=== PATIENT | male | born 1970 | race Caucasian/White ===

== ENCOUNTER 2016-11-14 07:42 | Inpatient (IN) | payer BC ==
[~2016-11-14] VITALS: Ht 175.3 cm; Wt 68.9 kg
[2016-11-14] VITALS (21 sets, daily range): BP systolic 91–200
[2016-11-14] MEDS ORDERED: ASPIRIN 325 MG TABLET PO ONE (08:15)
[2016-11-14 08:20] LABS: BASOPHILS % (AUTO) 0.5 % (0.0-2.0); EOSINOPHILS # (AUTO) 0.7 K/uL (0.0-0.4); EOSINOPHILS % (AUTO) 7.7 % (0.0-4.0); HEMATOCRIT 38.2 % (36-54); HEMOGLOBIN 12.7 g/dL (14.0-18.0); LYMPHOCYTES # (AUTO) 1.6 K/uL (1.0-5.5); MEAN CORPUSCULAR HEMOGLOBIN 31 pg (27-31); MEAN CORPUSCULAR HGB CONC 33 % (32-36); MEAN CORPUSCULAR VOLUME 93 fL (79.0-98.0); MONOCYTES # (AUTO) 0.7 K/uL (0.0-1.0); MONOCYTES % (AUTO) 7.7 % (1.7-9.3); NEUTROPHILS # (AUTO) 5.7 K/uL (1.8-7.7); NEUTROPHILS % (AUTO) 65.1 % (40.0-70.0); PLATELET COUNT (AUTO) 236 K/uL (130-430); RED BLOOD CELL COUNT(AUTO) 4.11 MIL/uL (4.2-6.2); RED CELL DISTRIBUTION WIDTH 13.4 % (9.0-15.0); WHITE BLOOD COUNT (AUTO) 8.7 K/uL (4.8-10.8)
[2016-11-14 08:25] LABS: ANION GAP 8 (5-15); CALCIUM 8.7 mg/dL (8.4-11.0); CHLORIDE 103 mmol/L (98-107); CREATININE 0.99 mg/dL (0.55-1.30); GLUCOSE 106 mg/dL (70-99); POTASSIUM 3.5 mmol/L (3.5-5.1); SODIUM SERUM 139 mmol/L (136-145); UREA NITROGEN, BLOOD 14 mg/dL (8-21)
[2016-11-14 08:26] LABS: GFR AFRICAN AMERICAN 105 mL/min (>90)
[2016-11-14 08:29] LABS: ALANINE AMINOTRANSFERASE 23 U/L (12-78); ALBUMIN 3.4 g/dL (3.4-4.8); ASPARTATE AMINOTRANSFERASE 26 U/L (10-37); INR 0.9 (0.80-1.20); PROTHROMBIN TIME 10.3 SECS (9.5-12.5); TOTAL BILIRUBIN 0.6 mg/dL (0.0-1.0)
[2016-11-14 08:30] LABS: ALCOHOL, BLOOD < 3 mg/dL (<10)
[2016-11-14] MEDS ORDERED: LORazepam 2 MG/ML VIAL (FOR ER USE) ONE ×3 (08:45→11:36)
[2016-11-14] MEDS ORDERED: LORazepam 2 MG/ML VIAL IVP ONE ×4 (08:45→13:30)
[2016-11-14 08:59] LABS: ABG TOTAL HEMOGLOBIN 13.8 G/dL (12.0-18.0); BLOOD GAS BASE EXCESS 1.9 mmol/L (-3.0-3.0); BLOOD GAS COHb% 1.7 % (0.5-1.5); BLOOD GAS HHB 7.1 % (0.0-6.0); BLOOD GAS PH 7.406 (7.350-7.450); BLOOD O2Hb% 90.8 % (94.0-97.0)
[2016-11-14 09:18] LABS: BARBITURATE, URINE NEGATIVE (NEG <=200)
[2016-11-14 09:19] LABS: BENZODIAZEPINE, URINE NEGATIVE (NEG <=150); CANNABINOID, URINE NEGATIVE (NEG <=50); COCAINE, URINE POSITIVE (NEG <=150); METHAMPHETAMINES SCREEN,URINE NEGATIVE (NEG <=500); OPIATE, URINE POSITIVE (NEG <=100); PHENCYCLIDINE SCREEN,URINE NEGATIVE (NEG <=25); UR TRICYCLIC ANTIDEPRESSANTS NEGATIVE (NEG <=300); URINE AMPHETAMINE NEGATIVE (NEG <=500); URINE METHADONE NEGATIVE (NEG <=200); URINE OXYCODONE SCREEN NEGATIVE (NEG <=100); URINE PROPOXYPHENE SCREEN NEGATIVE (NEG <=300)
[2016-11-14] MEDS ORDERED: NACL 0.9% 1,000 ML IV ONE (09:45)
[2016-11-14] MEDS ORDERED: IOHEXOL 350 mgI/mL, 150 ML INFUS..BTL IV ONE (09:46)
[2016-11-14] MEDS ORDERED: NALOXONE HCL 0.4 MG/ML AMP (NARCAN) IVP ONE (10:45)
[2016-11-14] MEDS ORDERED: NALOXONE HCL 0.4 MG/ML AMP (NARCAN) ONE (10:54)
[2016-11-14] MEDS ORDERED: PROPOFOL DRIP 100 ML IV ONE (11:15)
[2016-11-14] MEDS ORDERED: ROCURONIUM BROMIDE 10 MG/ML (ZEMURON) IV ONE (11:45)
[2016-11-14] MEDS ORDERED: ETOMIDATE 20 MG/ 10 ML VIAL (AMIDATE) IVP ONE (11:45)
[2016-11-14] MEDS ORDERED: LORazepam 2 MG/ML VIAL ONE ×2 (13:24→13:49)
[2016-11-14] MEDS ORDERED: MORPHINE 4 MG/ML INJ. SYRINGE ONE (13:48)
[2016-11-14 13:53] LABS: ABG TOTAL HEMOGLOBIN 13.3 G/dL (12.0-18.0); BLOOD GAS BASE EXCESS 2.8 mmol/L (-3.0-3.0); BLOOD GAS PH 7.354 (7.350-7.450)
[2016-11-14 13:54] LABS: BLOOD GAS HHB 1.6 % (0.0-6.0)
[2016-11-14] MEDS ORDERED: MORPHINE 2 MG/ML INJ. SYRINGE IVP PRN (14:00)
[2016-11-14] MEDS ORDERED: LORazepam 2 MG/ML VIAL IVP PRN (14:00)
[2016-11-14] MEDS ORDERED: IPRATROPIUM BROM 0.5 MG/2.5 ML VIAL.NEB (ATROVENT) INH PRN (14:15)
[2016-11-14] MEDS ORDERED: ALBUTEROL SULFATE 0.083% 2.5 MG/3 ML VIAL.NEB INH PRN (14:15)
[2016-11-14] MEDS: D5LR 1,000 ML IV SCH ×2 (14:45→21:41)
[2016-11-14] MEDS: LORazepam 2 MG/ML VIAL IVP PRN ×2 (14:45→15:47)
[2016-11-14] MEDS: cefTRIAXone 1 GM in D5W 50 ML IV SCH (14:49)
[2016-11-14] MEDS: PROPOFOL DRIP 100 ML IV SCH ×2 (15:46→21:51)
[2016-11-14] MEDS: MORPHINE 4 MG/ML INJ. SYRINGE IVP PRN (15:48)
[2016-11-14] MEDS: IPRATROPIUM/ALBUTEROL SULFATE 3 ML AMPUL.NEB INH SCH ×2 (19:00→23:00)
[2016-11-14] MEDS: ALBUTEROL SULFATE 0.083% 2.5 MG/3 ML VIAL.NEB INH SCH (19:19)
[2016-11-14] MEDS: IPRATROPIUM BROM 0.5 MG/2.5 ML VIAL.NEB (ATROVENT) INH SCH (19:19)
[2016-11-14] MEDS: methylPREDNISolone SOD SUCC/PF 62.5 MG/ML VIAL IVP SCH (21:40)
[2016-11-15] VITALS (33 sets, daily range): BP systolic 104–140
[2016-11-15] MEDS: MORPHINE 2 MG/ML INJ. SYRINGE IVP PRN (00:13)
[2016-11-15] MEDS: PROPOFOL DRIP 100 ML IV SCH ×4 (01:10→17:03)
[2016-11-15] MEDS: ALBUTEROL SULFATE 0.083% 2.5 MG/3 ML VIAL.NEB INH SCH ×4 (01:35→19:34)
[2016-11-15] MEDS: IPRATROPIUM BROM 0.5 MG/2.5 ML VIAL.NEB (ATROVENT) INH SCH ×4 (01:35→19:34)
[2016-11-15] MEDS: IPRATROPIUM/ALBUTEROL SULFATE 3 ML AMPUL.NEB INH SCH ×4 (03:00→15:00)
[2016-11-15] MEDS: methylPREDNISolone SOD SUCC/PF 62.5 MG/ML VIAL IVP SCH ×3 (05:28→22:11)
[2016-11-15] MEDS: D5LR 1,000 ML IV SCH ×3 (05:29→22:13)
[2016-11-15 06:51] LABS: EOSINOPHILS % (AUTO) 0.1 % (0.0-4.0); HEMATOCRIT 35.9 % (36-54); LYMPHOCYTES # (AUTO) 0.5 K/uL (1.0-5.5); LYMPHOCYTES % (AUTO) 6.9 % (20.5-51.5); MEAN CORPUSCULAR HEMOGLOBIN 32 pg (27-31); MEAN CORPUSCULAR HGB CONC 34 % (32-36); MEAN CORPUSCULAR VOLUME 94 fL (79.0-98.0); MONOCYTES # (AUTO) 0.1 K/uL (0.0-1.0); MONOCYTES % (AUTO) 1.4 % (1.7-9.3); NEUTROPHILS # (AUTO) 6.5 K/uL (1.8-7.7); NEUTROPHILS % (AUTO) 91.6 % (40.0-70.0); PLATELET COUNT (AUTO) 200 K/uL (130-430); RED BLOOD CELL COUNT(AUTO) 3.82 MIL/uL (4.2-6.2); RED CELL DISTRIBUTION WIDTH 12.9 % (9.0-15.0); WHITE BLOOD COUNT (AUTO) 7.1 K/uL (4.8-10.8)
[2016-11-15 07:22] LABS: ALBUMIN 2.6 g/dL (3.4-4.8); CALCIUM 8.4 mg/dL (8.4-11.0); CREATININE 0.81 mg/dL (0.55-1.30); TOTAL BILIRUBIN 0.2 mg/dL (0.0-1.0); TOTAL PROTEIN, SERUM 6.1 g/dL (6.4-8.3)
[2016-11-15 08:00] LABS: BLOOD GAS PH 7.446 (7.350-7.450)
[2016-11-15 08:01] LABS: ABG TOTAL HEMOGLOBIN 13.2 G/dL (12.0-18.0); BLOOD GAS BASE EXCESS 4.5 mmol/L (-3.0-3.0); BLOOD GAS COHb% 0.3 % (0.5-1.5); BLOOD GAS HHB 5.8 % (0.0-6.0); BLOOD O2Hb% 93.8 % (94.0-97.0)
[2016-11-15] MEDS: LORazepam 2 MG/ML VIAL IVP PRN ×5 (09:52→23:39)
[2016-11-15] MEDS ORDERED: ENOXAPARIN SODIUM 40 MG/0.4 ML SYRINGE SUBCUT ONE (11:00)
[2016-11-15] MEDS: MORPHINE 4 MG/ML INJ. SYRINGE IVP PRN ×2 (11:02→15:32)
[2016-11-15] MEDS: DIPHENHYDRAMINE INJ 50 MG/ML VIAL IVP SCH ×2 (13:00→17:23)
[2016-11-15] MEDS: FAMOTIDINE PF 20 MG/2 ML VIAL IVP SCH ×2 (13:15→21:12)
[2016-11-15] MEDS ORDERED: FAMOTIDINE PF 20 MG/2 ML VIAL IVP ONE (13:15)
[2016-11-15] MEDS ORDERED: DIPHENHYDRAMINE INJ 50 MG/ML VIAL IVP ONE (13:15)
[2016-11-15] MEDS: cefTRIAXone 1 GM in D5W 50 ML IV SCH (14:22)
[2016-11-15] MEDS ORDERED: MUPIROCIN NASAL 2% OINT. 1 GM NS SCH (21:00)
[2016-11-16] VITALS (33 sets, daily range): BP systolic 104–171
[2016-11-16] MEDS: DIPHENHYDRAMINE INJ 50 MG/ML VIAL IVP SCH ×2 (00:03→05:53)
[2016-11-16] MEDS: IPRATROPIUM BROM 0.5 MG/2.5 ML VIAL.NEB (ATROVENT) INH SCH ×4 (01:30→20:04)
[2016-11-16] MEDS: ALBUTEROL SULFATE 0.083% 2.5 MG/3 ML VIAL.NEB INH SCH ×4 (01:31→20:04)
[2016-11-16] MEDS: LORazepam 2 MG/ML VIAL IVP PRN ×6 (02:20→23:56)
[2016-11-16] MEDS: methylPREDNISolone SOD SUCC/PF 62.5 MG/ML VIAL IVP SCH ×2 (05:53→21:10)
[2016-11-16] MEDS: D5LR 1,000 ML IV SCH (06:00)
[2016-11-16] MEDS: PROPOFOL DRIP 100 ML IV SCH ×3 (06:15→17:31)
[2016-11-16 06:54] LABS: CALCIUM 8.5 mg/dL (8.4-11.0); CREATININE 0.91 mg/dL (0.55-1.30); POTASSIUM 3.7 mmol/L (3.5-5.1)
[2016-11-16 06:55] LABS: BASOPHILS % (AUTO) 0.1 % (0.0-2.0); HEMATOCRIT 36.8 % (36-54); HEMOGLOBIN 11.9 g/dL (14.0-18.0); LYMPHOCYTES # (AUTO) 0.8 K/uL (1.0-5.5); LYMPHOCYTES % (AUTO) 8.3 % (20.5-51.5); MEAN CORPUSCULAR HEMOGLOBIN 31 pg (27-31); MEAN CORPUSCULAR HGB CONC 33 % (32-36); MEAN CORPUSCULAR VOLUME 94 fL (79.0-98.0); MONOCYTES # (AUTO) 0.7 K/uL (0.0-1.0); MONOCYTES % (AUTO) 7.3 % (1.7-9.3); NEUTROPHILS # (AUTO) 8.7 K/uL (1.8-7.7); NEUTROPHILS % (AUTO) 84.3 % (40.0-70.0); PLATELET COUNT (AUTO) 224 K/uL (130-430); RED BLOOD CELL COUNT(AUTO) 3.93 MIL/uL (4.2-6.2); WHITE BLOOD COUNT (AUTO) 10.2 K/uL (4.8-10.8)
[2016-11-16] MEDS: IPRATROPIUM/ALBUTEROL SULFATE 3 ML AMPUL.NEB INH SCH ×2 (07:00→11:00)
[2016-11-16 07:59] LABS: BLOOD GAS PH 7.471 (7.350-7.450)
[2016-11-16 08:00] LABS: BLOOD GAS BASE EXCESS 3.4 mmol/L (-3.0-3.0); BLOOD GAS COHb% 0.3 % (0.5-1.5); BLOOD GAS HHB 4.3 % (0.0-6.0); BLOOD O2Hb% 95.1 % (94.0-97.0)
[2016-11-16] MEDS: ENOXAPARIN SODIUM 40 MG/0.4 ML SYRINGE SUBCUT SCH (08:24)
[2016-11-16] MEDS: FAMOTIDINE PF 20 MG/2 ML VIAL IVP SCH ×2 (08:25→21:10)
[2016-11-16] MEDS ORDERED: LACTULOSE 20 GM/30 ML UDC NG ONE (09:15)
[2016-11-16] MEDS: ONDANSETRON HCL 4 MG/2 ML VIAL IVP PRN ×2 (09:41→19:37)
[2016-11-16] MEDS: MORPHINE 2 MG/ML INJ. SYRINGE IVP PRN (11:25)
[2016-11-16] MEDS ORDERED: cloNIDine HCL 0.2 MG TABLET NG PRN (12:45)
[2016-11-16] MEDS: MORPHINE 4 MG/ML INJ. SYRINGE IVP PRN ×2 (13:36→15:21)
[2016-11-16] MEDS: cefTRIAXone 1 GM in D5W 50 ML IV SCH (14:06)
[2016-11-16] MEDS ORDERED: MUPIROCIN 2% TOPICAL OINTMENT 22 GM TP ONE (14:15)
[2016-11-16] MEDS ORDERED: DIPHENHYDRAMINE INJ 50 MG/ML VIAL IVP PRN (15:00)
[2016-11-16] MEDS: cloNIDine HCL 0.1 MG TABLET NG SCH ×2 (17:29→23:56)
[2016-11-16] MEDS: MUPIROCIN 2% TOPICAL OINTMENT 22 GM TP SCH (21:16)
[2016-11-17] VITALS (26 sets, daily range): BP systolic 120–150
[2016-11-17] MEDS: ALBUTEROL SULFATE 0.083% 2.5 MG/3 ML VIAL.NEB INH SCH ×4 (00:59→19:37)
[2016-11-17] MEDS: IPRATROPIUM BROM 0.5 MG/2.5 ML VIAL.NEB (ATROVENT) INH SCH ×4 (00:59→19:37)
[2016-11-17] MEDS: LORazepam 2 MG/ML VIAL IVP PRN ×2 (02:04→03:16)
[2016-11-17] MEDS: D5LR 1,000 ML IV SCH ×3 (05:00→19:16)
[2016-11-17] MEDS: PROPOFOL DRIP 100 ML IV SCH (05:02)
[2016-11-17] MEDS: cloNIDine HCL 0.1 MG TABLET NG SCH ×4 (06:07→23:10)
[2016-11-17 06:42] LABS: CALCIUM 8.4 mg/dL (8.4-11.0); CREATININE 0.84 mg/dL (0.55-1.30); POTASSIUM 3.7 mmol/L (3.5-5.1)
[2016-11-17 07:02] LABS: BASOPHILS % (AUTO) 0.2 % (0.0-2.0); HEMATOCRIT 35.9 % (36-54); HEMOGLOBIN 11.6 g/dL (14.0-18.0); LYMPHOCYTES # (AUTO) 0.9 K/uL (1.0-5.5); LYMPHOCYTES % (AUTO) 10.5 % (20.5-51.5); MEAN CORPUSCULAR HEMOGLOBIN 31 pg (27-31); MEAN CORPUSCULAR HGB CONC 32 % (32-36); MEAN CORPUSCULAR VOLUME 95 fL (79.0-98.0); MONOCYTES # (AUTO) 0.5 K/uL (0.0-1.0); MONOCYTES % (AUTO) 6.3 % (1.7-9.3); NEUTROPHILS # (AUTO) 7.3 K/uL (1.8-7.7); PLATELET COUNT (AUTO) 204 K/uL (130-430); RED BLOOD CELL COUNT(AUTO) 3.77 MIL/uL (4.2-6.2); RED CELL DISTRIBUTION WIDTH 13.5 % (9.0-15.0); WHITE BLOOD COUNT (AUTO) 8.7 K/uL (4.8-10.8)
[2016-11-17 07:52] LABS: BLOOD GAS PH 7.461 (7.350-7.450)
[2016-11-17 07:54] LABS: ABG TOTAL HEMOGLOBIN 12.9 G/dL (12.0-18.0); BLOOD GAS BASE EXCESS 5.4 mmol/L (-3.0-3.0); BLOOD GAS COHb% 0.3 % (0.5-1.5); BLOOD GAS HHB 3.8 % (0.0-6.0); BLOOD O2Hb% 95.5 % (94.0-97.0)
[2016-11-17] MEDS: ONDANSETRON HCL 4 MG/2 ML VIAL IVP PRN (07:58)
[2016-11-17] MEDS: MORPHINE 2 MG/ML INJ. SYRINGE IVP PRN ×2 (08:04→15:08)
[2016-11-17] MEDS: ENOXAPARIN SODIUM 40 MG/0.4 ML SYRINGE SUBCUT SCH (08:48)
[2016-11-17] MEDS: FAMOTIDINE PF 20 MG/2 ML VIAL IVP SCH (08:49)
[2016-11-17] MEDS: methylPREDNISolone SOD SUCC/PF 62.5 MG/ML VIAL IVP SCH ×2 (08:49→21:01)
[2016-11-17] MEDS: MUPIROCIN 2% TOPICAL OINTMENT 22 GM TP SCH ×2 (08:54→21:14)
[2016-11-17 11:32] LABS: ABG TOTAL HEMOGLOBIN 12.9 G/dL (12.0-18.0); BLOOD GAS BASE EXCESS 3.6 mmol/L (-3.0-3.0); BLOOD GAS COHb% 0.3 % (0.5-1.5); BLOOD GAS HHB 4.3 % (0.0-6.0); BLOOD GAS PH 7.484 (7.350-7.450); BLOOD O2Hb% 95.1 % (94.0-97.0)
[2016-11-17] MEDS: cefTRIAXone 1 GM in D5W 50 ML IV SCH (15:07)
[2016-11-17] MEDS ORDERED: metroNIDAZOLE 500 MG TABLET PO ONE (18:00)
[2016-11-17] MEDS: LACTOBACILLUS RHAMNOSUS GG 1 CAP CAPSULE PO SCH (21:01)
[2016-11-17] MEDS: metroNIDAZOLE 500 MG TABLET PO SCH (21:02)
[2016-11-18] MEDS: IPRATROPIUM BROM 0.5 MG/2.5 ML VIAL.NEB (ATROVENT) INH SCH ×4 (01:00→19:44)
[2016-11-18] MEDS: ALBUTEROL SULFATE 0.083% 2.5 MG/3 ML VIAL.NEB INH SCH ×4 (01:00→19:44)
[2016-11-18 01:23] VITALS: BP_SYST 116
[2016-11-18 04:00] VITALS: BP_SYST 128
[2016-11-18] MEDS: cloNIDine HCL 0.1 MG TABLET NG SCH ×4 (05:53→22:28)
[2016-11-18] MEDS: metroNIDAZOLE 500 MG TABLET PO SCH ×3 (05:53→20:33)
[2016-11-18 07:42] LABS: BASOPHILS % (AUTO) 0.1 % (0.0-2.0); HEMATOCRIT 37.9 % (36-54); HEMOGLOBIN 12.9 g/dL (14.0-18.0); LYMPHOCYTES # (AUTO) 1.9 K/uL (1.0-5.5); LYMPHOCYTES % (AUTO) 21.7 % (20.5-51.5); MEAN CORPUSCULAR HEMOGLOBIN 32 pg (27-31); MEAN CORPUSCULAR HGB CONC 34 % (32-36); MEAN CORPUSCULAR VOLUME 93 fL (79.0-98.0); MONOCYTES # (AUTO) 0.5 K/uL (0.0-1.0); MONOCYTES % (AUTO) 6.4 % (1.7-9.3); NEUTROPHILS # (AUTO) 6.2 K/uL (1.8-7.7); NEUTROPHILS % (AUTO) 71.8 % (40.0-70.0); PLATELET COUNT (AUTO) 231 K/uL (130-430); RED BLOOD CELL COUNT(AUTO) 4.06 MIL/uL (4.2-6.2); RED CELL DISTRIBUTION WIDTH 12.8 % (9.0-15.0); WHITE BLOOD COUNT (AUTO) 8.6 K/uL (4.8-10.8)
[2016-11-18 07:47] LABS: CALCIUM 8.9 mg/dL (8.4-11.0); CREATININE 0.83 mg/dL (0.55-1.30); POTASSIUM 3.5 mmol/L (3.5-5.1)
[2016-11-18 08:00] VITALS: BP_SYST 112
[2016-11-18] MEDS: methylPREDNISolone SOD SUCC/PF 62.5 MG/ML VIAL IVP SCH (09:20)
[2016-11-18] MEDS: ENOXAPARIN SODIUM 40 MG/0.4 ML SYRINGE SUBCUT SCH (09:20)
[2016-11-18] MEDS: LACTOBACILLUS RHAMNOSUS GG 1 CAP CAPSULE PO SCH ×2 (09:21→20:33)
[2016-11-18] MEDS: MUPIROCIN 2% TOPICAL OINTMENT 22 GM TP SCH ×2 (09:21→20:37)
[2016-11-18] MEDS ORDERED: PREDNISONE 20 MG TABLET PO ONE (10:15)
[2016-11-18] MEDS: IPRATROPIUM/ALBUTEROL SULFATE 3 ML AMPUL.NEB INH SCH (11:00)
[2016-11-18] MEDS: MORPHINE 2 MG/ML INJ. SYRINGE IVP PRN ×3 (12:19→20:34)
[2016-11-18 12:20] VITALS: BP_SYST 127
[2016-11-18 16:00] VITALS: BP_SYST 122
[2016-11-18 20:00] VITALS: BP_SYST 115
[2016-11-18] MEDS: LORazepam 2 MG/ML VIAL IVP PRN (22:27)
[2016-11-19 00:07] VITALS: BP_SYST 121
[2016-11-19] MEDS: IPRATROPIUM BROM 0.5 MG/2.5 ML VIAL.NEB (ATROVENT) INH SCH ×3 (00:53→13:29)
[2016-11-19] MEDS: ALBUTEROL SULFATE 0.083% 2.5 MG/3 ML VIAL.NEB INH SCH ×3 (00:53→13:29)
[2016-11-19] MEDS: metroNIDAZOLE 500 MG TABLET PO SCH ×2 (05:30→14:38)
[2016-11-19] MEDS: cloNIDine HCL 0.1 MG TABLET NG SCH ×2 (05:31→11:48)
[2016-11-19] MEDS: MORPHINE 2 MG/ML INJ. SYRINGE IVP PRN ×2 (05:31→09:10)
[2016-11-19 08:27] VITALS: BP_SYST 121
[2016-11-19] MEDS ORDERED: PREDNISONE 20 MG TABLET PO SCH (09:00)
[2016-11-19] MEDS: MUPIROCIN 2% TOPICAL OINTMENT 22 GM TP SCH (09:09)
[2016-11-19] MEDS: LACTOBACILLUS RHAMNOSUS GG 1 CAP CAPSULE PO SCH (09:09)
[2016-11-19 12:13] VITALS: BP_SYST 138
[2016-11-19 14:42] VITALS: BP_SYST 105
== END 2016-11-19 15:04 | disposition home or self-care (01) | DRG 208 ==
LOC: SED 07:42 → SIC 11:42 → SMU 11-17 19:00 → STU 11-17 20:29 → SMU 11-18 08:35
PROVIDERS: ADMIT Internal Medicine; ATTEND Internal Medicine
PROC: 5A1945Z Respiratory Ventilation, 24-96 Consecutive Hours (ICD-10-PCS; principal; 2016-11-14)
PROC: 0BH18EZ Insertion of Endotracheal Airway into Trachea, Via Natural or Artificial Opening Endoscopic (ICD-10-PCS; 2016-11-14)
DX: J96.01 Acute respiratory failure with hypoxia (principal); J44.1 Chronic obstructive pulmonary disease with (acute) exacerbation; F14.23 Cocaine dependence with withdrawal; F11.23 Opioid dependence with withdrawal; A04.7 Enterocolitis due to Clostridium difficile; F17.210 Nicotine dependence, cigarettes, uncomplicated; R00.0 Tachycardia, unspecified; B95.62 Methicillin resistant Staphylococcus aureus infection as the cause of diseases classified elsewhere
CPT/HCPCS: 36415; 36600; 71010; 74000-TC; 80048; 80053; 80307; 82803-TC; 83605; 83735-TC; 83880; 84484; 85025; 85379; 85610-TC; 85730-TC; 87070-TC; 87081; 87205-TC; 87230-TC; 94002; 94003; 94640; 94760; 96361; 96374; 96375; 99291; G0482; J0696; J1200; J1650; J2060; J2270; J2310; J2405; J2704; J2930; J3490; J7030; J7060; J7120; J7512; Q9967